=== PATIENT | female | born 1965 | race Caucasian/White ===

== ENCOUNTER → 2017-01-09 | Outpatient (CLI) | payer OTHER ==
[~2017-01-09] MED LIST: AMITIZA 24 MCG; AMT50T; AXERT; BSC10SU PR; BUDE6HFA IH; C COMPLEX; CHL25T PO; CHOL10007 PO; CIPR500T78 PO; CLON-378 PO; CYCL10TA45; DCS100C PO; DIAZ2TAB2 PO; DICY20TA57 PO; DULO60CA6; DULO60CA6 PO; ESTR0.5T3 PO; ESZO2TAB30 PO; ESZO3TAB30 PO; FLC1T; FROV2.5T6 PO; FURO20TA4; GABA600T2 PO; HCT25T; HYDR-2858 PO; HYDR-2890 PO; HYDR-3720 PO; HYDR-3820 PO; HYDR16TA PO; HYDR1TAB71 PO; HYDR1TAB8 OP; HYDROCODONE; HYOS0.1216 PO; IBUP400T22; LACT10SO33 PO; LACT20SO2 PO; LEVO250T7 PO; LEVO500T69 PO; LIPA1CAP4 PO; LISD50CA2; LTH300C; METR250T PO; METR500T PO; MORP-34 PO; MTH10T; NF-XOP-HFA IH; NITR-65 PO; OMEP20CA12 PO; OMEP20CA6 PO; OMEP40CA36 PO; ONDA-42 SL; ONDA4TAB11 PO; ONDA8TAB13 PO; ONDA8TAB9 PO; ONDN4T PO; OXYC-197 PO; OXYC-309 PO; OXYC-465 PO; OXYC10TA7 PO; OXYC15TA; OXYC20TA63 PO; OXYC40TA49 PO; PEG250PW PO; PNT40TEC; POLY17PO23 PO; POTASSIUM; PREG50C PO; PRM25T PO; PROC10TA23; PROM25SU10 PR; PROM25TA14 PO; PROP60CA17 PO; RELISTOR12; RELPAX; SCOP1PAT TD; SMTR50T PO; TAPE100T PO; TIZA4CAP; TIZA4CAP PO; TIZA4CAP8 PO; TIZA6CAP PO; TOPI50TA20; TPR100T; TRAM50TA2 PO; Tizanidine Hcl PO; WHEA730P PO; ZOLM5TAB10 PO; ZOLP12.5 PO; [UNRECOGNIZED DRUG - CODE] PO; [UNRECOGNIZED DRUG - CODE] PO; [UNRECOGNIZED DRUG - OTHER]
[2017-01-09 11:32] LABS: BASOPHILS % (AUTO) 0 % (0-10); EOSINOPHILS # (AUTO) 0.2 10^3/uL (0.0-0.3); EOSINOPHILS % (AUTO) 5 % (0-10); LYMPHOCYTES # (AUTO) 1.3 X 10^3 (1.0-4.0); LYMPHOCYTES % (AUTO) 39 % (12-44); MEAN CORPUSCULAR HEMOGLOBIN 30 PG (25-34); MEAN CORPUSCULAR HGB CONC 33 G/DL (32-36); MEAN CORPUSCULAR VOLUME 92 FL (80-99); MEAN PLATELET VOLUME 12.1 FL (7.4-10.4); MONOCYTES # (AUTO) 0.2 X 10^3 (0.0-1.0); MONOCYTES % (AUTO) 6 % (0-12); NEUTROPHILS # (AUTO) 1.6 X 10^3 (1.8-7.8); NEUTROPHILS % (AUTO) 50 % (42-75); RED BLOOD COUNT 4.26 10^6/uL (4.35-5.85); RED CELL DISTRIBUTION WIDTH 15.2 % (10.0-14.5); WHITE BLOOD COUNT 3.3 10^3/uL (4.3-11.0)
[2017-01-09 11:42] LABS: PLATELET COUNT 40 10^3/uL (130-400)
[2017-01-09 11:45] LABS: INR 1.2 (0.8-1.4); PROTHROMBIN TIME PATIENT 15.5 SEC (12.2-14.7)
[2017-01-09 11:55] LABS: ALANINE AMINOTRANSFERASE 42 U/L (0-55); ALBUMIN 3.3 GM/DL (3.2-4.5); ANION GAP 5 MMOL/L (5-14); ASPARTATE AMINO TRANSFERASE 72 U/L (5-34); BILIRUBIN,TOTAL 1.6 MG/DL (0.1-1.0); BLOOD UREA NITROGEN 15 MG/DL (7-18); BUN/CREATININE RATIO 23; CALCIUM 9.2 MG/DL (8.5-10.1); CARBON DIOXIDE 26 MMOL/L (21-32); CHLORIDE 111 MMOL/L (98-107); CREATININE SERUM 0.66 MG/DL (0.60-1.30); GFR ESTIMATED > 60; GLUCOSE 109 MG/DL (70-105); POTASSIUM 3.8 MMOL/L (3.6-5.0); SODIUM 142 MMOL/L (135-145); TOTAL PROTEIN 6.5 GM/DL (6.4-8.2)
--- NOTE | 2017-01-09 13:56 | Diagnostic Imaging Report ---
PROCEDURE: US abdomen complete. TECHNIQUE: Multiple real-time grayscale images were obtained over the abdomen in various projections. INDICATION: History of cirrhosis. COMPARISON: 01/19/2016. FINDINGS: The liver is slightly heterogeneous and echogenic and has a nodular contour consistent with the given history of cirrhosis. No focal hepatic mass is suspected. The common bile duct is dilated measuring about 11 mm which may be related to prior cholecystectomy. The spleen measures 15 cm in length and appears slightly prominent. No focal abnormality is seen. The pancreas is not well visualized. Abdominal aorta is not well seen. Visualized portions of the inferior vena cava appear unremarkable. The right kidney measures 11.5 cm in length and the left kidney measures 11.6 cm in length and appears unremarkable. There is no ascites or sonographic Sparks's sign. IMPRESSION: 1. The liver is somewhat nodular in contour and heterogeneous consistent with given history of cirrhosis. 2. Common bile duct is mildly dilated measuring 11 mm which may be related to prior cholecystectomy. 3. No additional abnormality is seen. Pancreas and abdominal aorta are not well seen. Dictated by: Dictated on workstation # [id number]
--- NOTE | 2017-01-09 22:51 | Diagnostic Imaging Report ---
DEXA scan INDICATION: Screening for osteoporosis There are no prior studies available for comparison. The bone mineral density of the hips and spine was measured. The T-score for the spine is -1.2. The T-score for left hip is -1.8 and for the right hip -1.5. All of these values fall within the range of osteopenia. IMPRESSION: There is osteopenia of the hips and spine. Dictated by: Dictated on workstation # [id number]
== END ==
LOC: RAD 10:20
PROVIDERS: ATTEND Nurse Practitioner Family
DX: K70.30 Alcoholic cirrhosis of liver without ascites (principal); M85.89 Other specified disorders of bone density and structure, multiple sites; Z90.49 Acquired absence of other specified parts of digestive tract; E55.9 Vitamin D deficiency, unspecified
CPT/HCPCS: 36415; 76700; 77080; 80053; 82105; 85025; 85610

== ENCOUNTER → 2017-03-28 | Outpatient (CLI) | payer OTHER ==
[2017-03-28 13:27] LABS: ANION GAP 8 MMOL/L (5-14); BLOOD UREA NITROGEN 5 MG/DL (7-18); BUN/CREATININE RATIO 8; CALCIUM 9.5 MG/DL (8.5-10.1); CARBON DIOXIDE 28 MMOL/L (21-32); CHLORIDE 100 MMOL/L (98-107); CREATININE SERUM 0.59 MG/DL (0.60-1.30); GFR ESTIMATED > 60; GLUCOSE 88 MG/DL (70-105); POTASSIUM 3.1 MMOL/L (3.6-5.0); SODIUM 136 MMOL/L (135-145)
== END ==
LOC: LAB 12:49
PROVIDERS: ATTEND Nurse Practitioner Family
DX: E55.9 Vitamin D deficiency, unspecified (principal); K70.30 Alcoholic cirrhosis of liver without ascites
CPT/HCPCS: 36415; 80048

== ENCOUNTER → 2017-06-11 | Outpatient (CLI) | payer OTHER ==
[2017-06-11 14:40] LABS: BASOPHILS % (AUTO) 1 % (0-10); EOSINOPHILS # (AUTO) 0.2 10^3/uL (0.0-0.3); EOSINOPHILS % (AUTO) 5 % (0-10); HEMATOCRIT 38 % (35-52); HEMOGLOBIN 12.9 G/DL (11.5-16.0); LYMPHOCYTES # (AUTO) 1.4 X 10^3 (1.0-4.0); LYMPHOCYTES % (AUTO) 35 % (12-44); MEAN CORPUSCULAR HEMOGLOBIN 32 PG (25-34); MEAN CORPUSCULAR HGB CONC 34 G/DL (32-36); MEAN CORPUSCULAR VOLUME 93 FL (80-99); MONOCYTES # (AUTO) 0.3 X 10^3 (0.0-1.0); MONOCYTES % (AUTO) 8 % (0-12); NEUTROPHILS # (AUTO) 2.1 X 10^3 (1.8-7.8); NEUTROPHILS % (AUTO) 52 % (42-75); RED BLOOD COUNT 4.08 10^6/uL (4.35-5.85); RED CELL DISTRIBUTION WIDTH 15.5 % (10.0-14.5)
[2017-06-11 14:43] LABS: INR 1.3 (0.8-1.4); PROTHROMBIN TIME PATIENT 16.2 SEC (12.2-14.7)
[2017-06-11 14:50] LABS: PLATELET COUNT 32 10^3/uL (130-400)
[2017-06-11 14:52] LABS: ALANINE AMINOTRANSFERASE 36 U/L (0-55); ALKALINE PHOSPHATASE 249 U/L (40-136); BILIRUBIN,TOTAL 2.8 MG/DL (0.1-1.0); BUN/CREATININE RATIO 15; CALCIUM 8.3 MG/DL (8.5-10.1); CARBON DIOXIDE 22 MMOL/L (21-32); CHLORIDE 112 MMOL/L (98-107); CREATININE SERUM 0.66 MG/DL (0.60-1.30); GFR ESTIMATED > 60; GLUCOSE 107 MG/DL (70-105); POTASSIUM 3.3 MMOL/L (3.6-5.0); SODIUM 143 MMOL/L (135-145); TOTAL PROTEIN 6.4 GM/DL (6.4-8.2)
== END ==
LOC: LAB 14:00
PROVIDERS: ATTEND Nurse Practitioner Family
DX: K70.30 Alcoholic cirrhosis of liver without ascites (principal); E55.9 Vitamin D deficiency, unspecified; E87.6 Hypokalemia
CPT/HCPCS: 36415; 80053; 82306; 85025; 85610

== ENCOUNTER → 2017-07-22 | Outpatient (CLI) | payer OTHER ==
[~2017-07-22] MED LIST changes: +CATHETER FLUSH 10 ML SYR IV PRN; +IOHEXOL 350 MG/ML 100 ML (OMNIPAQUE 350) VIAL IV ONE; +NS 100 ML (IVPB) BAG IV ONE
[2017-07-22 09:58] LABS: CREATININE SERUM 0.63 MG/DL (0.60-1.30)
--- NOTE | 2017-07-22 12:55 | Diagnostic Imaging Report ---
PROCEDURE: CT abdomen and pelvis without contrast. TECHNIQUE: Multiple contiguous axial images were obtained through the abdomen and pelvis without the use of intravenous contrast. Intravenous contrast could not be administered due to poor venous access. INDICATION: Abdominal pain, hernia. FINDINGS: The previous CT abdomen/pelvis exam performed on 12/01/2014 indicated that the appearance of the liver did suggest cirrhosis. On this exam, the liver seems similar in size, but the liver does have more of a micronodular contour than noted on the previous study. The small 9 mm area of low density in the caudate lobe of the liver seen previously is again visualized and now measures only 8 mm in size. Also, in the interval since the prior study, a small amount of fluid has developed along the periphery of the right lobe of the liver. The fluid measures roughly 2.1 cm in maximum depth. The prior exam also indicated splenomegaly. In the interval since the previous study, the spleen has increased in size. On the prior exam, the spleen measured approximately 17.5 cm in maximum AP diameter. On this exam, the spleen now measures 18.7 cm. Furthermore, in the interval since the prior study, mild distortion of the mesenteric fat throughout the abdomen and pelvis has developed. This finding is nonspecific but does suggest that there may be an element of edema/inflammation of the mesentery. There is also now a small amount of free fluid low in the pelvis. There is no pelvic mass or abscess visualized. As noted on the prior exam, the uterus is surgically absent. The urinary bladder is grossly unremarkable. There are a few diverticula involving the sigmoid colon, but there is no sign of acute diverticulitis. The appendix was not well visualized, but there is a surgical clip near the cecum, and the appendix may well be surgically absent. The gallbladder is also surgically absent. The pancreas, the adrenals, the kidneys, the aorta, and the inferior vena cava show no sign of an acute abnormality. The stomach is partially filled with particulate matter and difficult to assess. The fat-containing retro-umbilical hernia seen on the prior study is again evident and not significantly changed. There is still no incarceration or obstruction of bowel by the hernia. The bone windows show no evidence for a fracture or for a destructive lesion. The sclerosis of the body of L1 seen previously is again evident and no different. The lung bases are clear. IMPRESSION: 1. The appearance of the abdomen and pelvis has worsened since the prior study as a small amount of fluid has developed about the right lobe of the liver and there is a small amount of fluid in the pelvis. There is also distortion of the mesenteric fat throughout the abdomen and pelvis. This finding is nonspecific but does suggest edema/inflammation of the mesenteric fat. There is no focal mass or abscess visualized, however. 2. The spleen is also increased in size since the prior exam. The appearance of the liver does suggest cirrhosis. 3. There is no acute abnormality of the abdomen or pelvis noted otherwise. 4. The uterus, the appendix, and the gallbladder appear to be surgically absent. Correlation with the patient's surgical history would be recommended. 5. There is a persistent retro-umbilical hernia, but there is no incarceration or obstruction of the bowel by the hernia. Dictated by: Dictated on workstation # [id number]
== END ==
LOC: RAD 09:18
PROVIDERS: ATTEND Surgery
DX: K42.9 Umbilical hernia without obstruction or gangrene (principal); R93.2 Abnormal findings on diagnostic imaging of liver and biliary tract; R16.1 Splenomegaly, not elsewhere classified; Z90.49 Acquired absence of other specified parts of digestive tract; Z90.711 Acquired absence of uterus with remaining cervical stump
CPT/HCPCS: 36415; 74176; 82565; 84520